=== PATIENT | male | born 1950 | race Caucasian/White ===

== ENCOUNTER 2022-11-30 12:38 | Outpatient (CLI) | payer OTHER, SELFPAY ==
--- NOTE | 2022-11-30 12:48 | USCV_ITS ---
Dyan Randell Age: 72 Gender: M : 1950 Exam Date: 11/30/2022 13:00 Ordering Phys: Inocencio Villanueva DO Technologist: CT Exam Location: [facility] – [place] Indication: screening aaa HISTORY: Diameter (cm) AP x Transverse x Length Velocity (cm/s) Waveform Prox Aorta: 1.81 x 1.90 x 131.70 Mid Aorta: 1.72 x 1.58 x 110.90 Distal Aorta: 1.52 x 1.58 x 141.40 Right Iliac Prox: 0.91 x 0.91 x 169.10 Left Iliac Prox: 0.97 x 1.02 x 160.80 Stent Prox Landing x x Aneurysmal Sac Max x x Lt Lat Sac Dim Rt Lat Sac Dim Stent Dist Landing x x Right Iliac Stent x x Left Iliac Stent x x Right Renal Art Left Renal Art FINDINGS: no aaa CONCLUSIONS No evidence of abdominal aortic or bilateral iliac aneurysm. 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 Ritesh Price MD (Electronically Signed) Final Date: 30 November 2022 13:18 S
== END 2022-11-30 12:39 | disposition home or self-care (01) ==
LOC: RAD 12:45
PROVIDERS: PCP Emergency Medicine Emergency Medical Services; Visit Provider Emergency Medicine Emergency Medical Services
DX: Z01.89 Encounter for other specified special examinations (principal)
CPT/HCPCS: 76706

== ENCOUNTER 2024-05-08 08:51 | Emergency (ER) | payer OTHER, MEDICARE, MEDICAID, SELFPAY ==
[2024-05-08] VITALS (20 sets, daily range): BP systolic 151–185; BP diastolic 65–85; PULSE 53–78; RESP 14–22; TEMP 36.8; O2SAT 90–99; BMI 29.5
--- NOTE | 2024-05-08 09:09 | ECG_ITS ---
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 Measurements Intervals [place] Rate: 61 P: 64 SC: 140 QRS: 56 QRSD: 100 T: 56 QT: 382 QTc: 386 Interpretive Statements SINUS RHYTHM No previous ECG available for comparison Electronically Signed On 05-09-2024 21:50:20 CDT by Ubaldo Contreras M.D. [id number]
--- NOTE | 2024-05-08 09:25 | W.ED.ARRPALP ---
HPI - Arrhythmia/Palpitations General: Chief Complaint: Arrhythmia/Palpitations Stated Complaint: [facility], high bp, heart palpitations Time Seen by Provider: 05/08/24 09:07 Source: patient Mode of arrival: ambulatory History of Present Illness: 73-year-old male who presents emergency room with elevated blood pressure and intermittent heart palpitations. He initially went to the [place] [facility] when he was directed here he has not had any chest pain denies any shortness of breath states he actually feels well right now. He typically takes 25 mg of metoprolol succinate twice daily he is taking that regularly recently and has not changed. He has a known history of hypertension. No known history of atrial fibrillation in the past MD complaint: rapid heart beat Review of Systems Const: Denies: fever(s) or chills Card: Denies: chest pain Resp: Denies: dyspnea GI: Denies: abdominal pain : Denies: dysuria, urinary frequency or urinary urgency Musc: Denies: neck pain or back pain Skin/Breast: Denies: rash PFSH ED PFSH: Social History Smoking and tobacco/nicotine status: never used tobacco/nicotine Second hand smoke exposure: No Alcohol intake: never Substance/Drug Use: never Physical Exam Const: GENERAL APPEARANCE: cooperative and comfortable ORIENTATION/CONSCIOUSNESS: Yes awake, Yes oriented to person, Yes oriented to place and Yes oriented to time HENMT: COMMON NORMALS: normocephalic, atraumatic and hearing grossly normal bilaterally HEAD & SCALP: normocephalic and atraumatic Resp: COMMON NORMALS: normal respiratory effort, No retractions, No use of accessory muscles and clear to auscultation bilaterally AUSCULTATION: clear to auscultation bilaterally Cardio: COMMON NORMALS: No murmurs present (Cardio) RATE: tachycardic RHYTHM: abnormal rhythm irregularly irregular GI: COMMON NORMALS: Soft to palpation and No hepatosplenomegaly present AUSCULTATION: Yes normoactive bowel sounds PALPATION: Yes Soft to palpation, No Tenderness to palpation present (GI), No Guarding due to palpation present (GI) and Yes No hepatosplenomegaly present Extremity: COMMON NORMALS: normal to inspection, capillary refill normal, no clubbing, cyanosis or edema, no calf tenderness and no pedal edema Neuro: SENSORIUM/ORIENTATION: Yes oriented to person, Yes oriented to place and Yes oriented to time Skin: COMMON NORMALS: no rashes or lesions noted GENERAL SKIN EXAM: no rashes or lesions noted Course Vital Signs: Vital signs: Vital Signs Temperature 98.3 F 05/08/24 08:52 Pulse Rate 60 05/08/24 11:45 Respiratory Rate 22 H 05/08/24 11:45 Blood Pressure 151/85 05/08/24 11:50 Pulse Oximetry 96 05/08/24 11:45 Oxygen Delivery Me thod Room Air 05/08/24 10:50 MDM - Arrhythmia/Palpitations Medical Decision Making No symptoms or arrhythmias during stay in the emergency room. He did remain bradycardic however his blood pressure is actually somewhat elevated. Will add amlodipine 2.5 mg daily discharge him home with his 72-hour Holter monitor follow-up with his primary care doctor. Recheck if he has further problems. Differential Diagnosis Likely palpitations Medical Records I reviewed the patient's medical records. Lab Data I reviewed the patient's lab results. 05/08/24 09:18 05/08/24 09:18 Radiology Impressions Chest X-Ray 05/08/24 10:21 IMPRESSION: No acute chest abnormality. Laboratory Results WBC 4.94 10^3/uL (3.29-11.43) 05/08/24 09:18 RBC 4.87 10^6/uL (3.85-5.65) 05/08/24 09:18 Hgb 14.60 g/dL (11.27-16.99) 05/08/24 09:18 Hct 45.2 % (37-53) 05/08/24 09:18 MCV 92.8 fl (82-101) 05/08/24 09:18 MCH 30.0 pg (27-33) 05/08/24 09:18 MCHC 32.3 g/dL (30-55) 05/08/24 09:18 RDW 13.3 % (12.1-15.1) 05/08/24 09:18 Plt Count 167 10^3/cmm (157-399) 05/08/24 09:18 MPV 11.4 fL (7.4-10.4) H 05/08/24 09:18 Neut % (Auto) 66.0 % 05/08/24 09:18 Lymph % (Auto) 23.9 % 05/08/24 09:18 [place] % (Auto) 7.9 % 05/08/24 09:18 Eos % (Auto) 1.4 % 05/08/24 09:18 Baso % (Auto) 0.6 % 05/08/24 09:18 Neut # (Auto) 3.26 10^3/uL (1.8-7.7) 05/08/24 09:18 Lymph # (Auto) 1.2 10^3/uL (0.8-4.8) 05/08/24 09:18 [place] # (Auto) 0.4 10^3/uL (0.2-0.9) 05/08/24 09:18 Eos # (Auto) 0.1 10^3/uL (0.0-0.8) 05/08/24 09:18 Baso # (Auto) 0.0 10^3/uL (0.0-0.1) 05/08/24 09:18 Nucleated RBC % (auto) 0 % 05/08/24 09:18 Nucleated RBCs # 0.0 /100WBC 05/08/24 09:18 Sodium 136 mmol/L (136-145) 05/08/24 09:18 Potassium 4.2 mmol/L (3.5-5.1) 05/08/24 09:18 Chloride 103 mmol/L (98-107) 05/08/24 09:18 Carbon Dioxide 20 mmol/L (22-29) L 05/08/24 09:18 Anion Gap 17.2 (5-19) 05/08/24 09:18 BUN 13 mg/dL (8-23) 05/08/24 09:18 Creatinine 0.8 mg/dL (0.7-1.2) 05/08/24 09:18 GFR Calculation Not Reportable 05/08/24 09:18 Glucose 114 mg/dL (65-115) 05/08/24 09:18 Calculated Osmolality 283 mOsm/kg (285-295) L 05/08/24 09:18 Calcium 8.9 mg/dL (8.5-10.5) 05/08/24 09:18 Total Bilirubin 0.5 mg/dL (0.15-1.2) 05/08/24 09:18 AST 27 U/L (0-40) 05/08/24 09:18 ALT 23 U/L (0-41) 05/08/24 09:18 Alkaline Phosphatase 142 U/L (40-130) H 05/08/24 09:18 Troponin T Baseline 9 ng/L (0-15) 05/08/24 09:18 Troponin T 120 Minute 9.59 ng/L (0-15) 05/08/24 10:48 Delta Troponin T 0.59 ABS# (0-10) 05/08/24 10:48 Total Protein 7.3 g/dL (6.6-8.7) 05/08/24 09:18 Albumin 4.2 g/dL (3.5-5.2) 05/08/24 09:18 Globulin 3.1 g/dL (1.3-4.6) 05/08/24 09:18 TSH 2.73 uIU/mL (0.27-4.20) 05/08/24 09:18 All radiology interpretation(s) finalized by discharge Discharge Plan Discharge Patient Disposition: Home Clinical Impression: HTN (hypertension), Palpitation Condition: Stable Prescriptions: New amlodipine 2.5 mg tablet 2.5 mg PO DAILY Qty: 30 0RF No Action cholecalciferol (vitamin D3) 25 mcg (1,000 unit) capsule 25 mcg PO .QOD tamsulosin 0.4 mg capsule 0.4 mg PO DAILY famotidine 20 mg Tablet 20 mg PO BID metoprolol tartrate 50 mg Tablet 25 mg PO BID Fish Oil 1,000 mg (120 mg-180 mg) Capsule 1 cap PO DAILY Discharge Orders: Discharge ED (Routine); Ordered 05/08/24 Ordered By: Bucky Dangelo Discharge Diet: Usual diet Discharge Activity: Resume usual activity Patient Instructions: Opioid Safety, Pain Management Activity Restrictions/Additional Instructions: Thank you for choosing [facility] for your healthcare needs today. It is very important that you follow up as instructed or that you return to the Emergency Department should you have concerns or if your condition changes or worsens in any way. You were seen today for complaints of elevated blood pressure and rapid heart rate. At times you had an irregular heart rate in the emergency room but your rate was controlled the entire visit. Recommend you continue taking metoprolol daily. Will add amlodipine 2.5 mg daily. In addition to this we will set you up for an outpatient 72-hour Holter monitor. Coding Level of Care Code ED Ground Support Equipment Mechanic for Rogelio Vargas
[2024-05-08 09:35] LABS: Basophils % 0.6 %; Eosinophils # 0.1 10^3/uL (0.0-0.8); Eosinophils % 1.4 %; Hematocrit 45.2 % (37-53); Lymphocytes # 1.2 10^3/uL (0.8-4.8); Lymphocytes % 23.9 %; Mean Corpuscular HGB Conc 32.3 g/dL (30-55); Mean Corpuscular Volume 92.8 fl (82-101); Mean Platelet Volume 11.4 fL (7.4-10.4); Monocytes # 0.4 10^3/uL (0.2-0.9); Monocytes % 7.9 %; Neutrophils # 3.26 10^3/uL (1.8-7.7); Nucleated Red Blood Cells % 0 %; Platelet Count 167 10^3/cmm (157-399); Red Blood Count 4.87 10^6/uL (3.85-5.65); Red Cell Distribution Width 13.3 % (12.1-15.1); White Blood Count 4.94 10^3/uL (3.29-11.43)
[2024-05-08 09:54] LABS: Slide Review Slide Review Perform
[2024-05-08 09:56] LABS: Troponin(5th) Baseline 9 ng/L (0-15)
[2024-05-08 10:03] LABS: Alanine Aminotransferase 23 U/L (0-41); Albumin Level 4.2 g/dL (3.5-5.2); Alkaline Phosphatase 142 U/L (40-130); Blood Urea Nitrogen 13 mg/dL (8-23); Calcium 8.9 mg/dL (8.5-10.5); Carbon Dioxide 20 mmol/L (22-29); Chloride 103 mmol/L (98-107); Creatinine Clr Calc Pharmacy 81.9074; Globulin 3.1 g/dL (1.3-4.6); Glucose 114 mg/dL (65-115); Osmolality Calculated 283 mOsm/kg (285-295); Sodium 136 mmol/L (136-145); Thyroid Stimulating Hormone 2.73 uIU/mL (0.27-4.20); Total Bilirubin 0.5 mg/dL (0.15-1.2); Total Protein 7.3 g/dL (6.6-8.7)
[2024-05-08 10:05] LABS: Anion Gap 17.2 (5-19); Aspartate Amino Transferase 27 U/L (0-40); Potassium 4.2 mmol/L (3.5-5.1)
--- NOTE | 2024-05-08 10:21 | XR_ITS ---
WS: [id number] XR chest 1V portable [id number] REASON FOR EXAM: dyspnea/cough FINDINGS: Mild tortuosity of the thoracic aorta. Heart size is at the upper limits of normal. Calcified granulomas disease in both hemithoraces. No acute/subacute pulmonary parenchymal or pleural abnormality is identified. No lung nodule, mass, or adenopathy. 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 Moderate degenerative spondylosis in the mid and lower thoracic spine. XR/XR chest 1V portable [id number] IMPRESSION: No acute chest abnormality.
--- NOTE | 2024-05-08 11:09 | ECG_ITS ---
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 Measurements Intervals [place] Rate: 58 P: 67 HI: 158 QRS: 58 QRSD: 100 T: 67 QT: 390 QTc: 385 Interpretive Statements SINUS BRADYCARDIA Compared to ECG 05/08/2024 08:54:25 Sinus rhythm no longer present Electronically Signed On 05-09-2024 22:05:49 CDT by Ubaldo Contreras M.D. [id number]
[2024-05-08 11:18] LABS: Troponin 5 2HR 9.59 ng/L (0-15); Troponin 5 2HR Delta 0.59 ABS# (0-10)
--- NOTE | 2024-05-08 15:28 | DCPLANNER ---
messaged heart/lung for er f/u holter moniter
== END 2024-05-08 11:50 | disposition home or self-care (01) ==
PROVIDERS: Emergency Provider Family Medicine
DX: R00.2 Palpitations (principal); I10 Essential (primary) hypertension
CPT/HCPCS: 36415; 71045; 80053; 84443; 84484; 85025; 93005; 99285

== ENCOUNTER → 2024-07-13 12:07 | Outpatient (BNVA) | payer OTHER, SELFPAY | PROVIDERS: PCP Family Medicine; Referring Provider Family Medicine; Visit Provider Internal Medicine Cardiovascular Disease | DX: R06.02 Shortness of breath (principal); I10 Essential (primary) hypertension; R00.2 Palpitations | CPT/HCPCS: 99204 ==

== ENCOUNTER 2024-08-16 08:32 | Outpatient (CLI) | payer OTHER, SELFPAY ==
--- NOTE | 2024-08-16 09:15 | USCV_ITS ---
Randell Zaidi Age: 73 Gender: M : 1950 Exam Date: 08/16/2024 09:07 Ordering Phys: Zoila Peralta MD ([email or web address]) Technologist: SAPNA [place]am Location[place] [facility] [place] Indication: CHEST PAIN BP: 130 / 74 HR: 55 Rhythm: Sinus Technical Quality: Adequate MEASUREMENTS (Male / Female) Normal Values 2D ECHO LV Diastolic Diameter PLAX 5.1 cm 4.2 - 5.9 / 3.9 - 5.3 cm IVS Diastolic Thickness 1.1 cm 0.6 - 1.0 / 0.6 - 0.9 cm IVS Systolic Thickness 2.2 cm LVPW Diastolic Thickness 1.5 cm 0.6 - 1.0 / 0.6 - 0.9 cm LVPW Systolic Thickness 1.9 cm LVOT Diameter 2.0 cm LV Ejection Fraction 2D Teich 69.5 % LV Ejection Fraction MOD 4C 57.9 % LV Ejection Fraction MOD 2C 57.7 % LV Ejection Fraction 2C AL 60.7 % LA Diameter 3.2 cm RA Systolic Volume 4C AL 27.7 ml RA Systolic Volume 4C MOD 26.8 ml LA Sys Volume AL 47.4 cm cubed LA Sys Volume Index AL 24.0 cm cubed/m squared Aorta at Sinotubular Diameter 2.8 cm M-MODE LA Ao Ratio MM 1.0 AV Cusp Separation MM 1.3 cm DOPPLER AV Peak Velocity 141.0 cm/s LVOT Peak Velocity 107.0 cm/s AV Area Cont Eq vti 2.4 cm squared AV Area Cont Eq pk 2.5 cm squared MV Peak Velocity 102.0 cm/s MV Area PHT 3.8 cm squared Mitral E to A Ratio 1.0 TR Peak Velocity 237.5 cm/s TR Peak Gradient 22.6 mmHg TR Mean Velocity 176.0 cm/s TR Mean Gradient 13.5 mmHg TR Velocity Time Integral 83.7 cm TV Peak E Velocity 58.0 cm/s Right Atrial Pressure 3.0 mmHg Pulmonary Artery Systolic Pressu 25.6 mmHg PV Peak Velocity 109.0 cm/s RV Ejection Time 0.4 s FINDINGS Left Ventricle Normal left ventricular size, systolic function and wall thickness, with no regional wall motion abnormalities. Left ventricular ejection fraction is estimated at 55 %. Grade I/IV diastolic dysfunction (abnormal relaxation filling pattern), normal to mildly elevated filling pressures. Right Ventricle The right ventricle is normal in size and function. Right Atrium The right atrium is normal in size. Left Atrium The left atrium is normal in size. Mitral Valve Structurally normal mitral valve without significant stenosis or prolapse. There is no mitral regurgitation. Aortic Valve Structurally normal aortic valve without significant sclerosis or stenosis. There is no aortic regurgitation. Tricuspid Valve Structurally normal tricuspid valve without significant stenosis or regurgitation. Pulmonary artery systolic pressure is normal. Pulmonic Valve Structurally normal pulmonic valve without significant stenosis. There is no pulmonic regurgitation. Pericardium Normal pericardium without effusion. Aorta Normal ascending aorta dimension. IVC The inferior vena cava appears normal. CONCLUSIONS Normal left ventricular size, systolic function and wall thickness, with no regional wall motion abnormalities. Left ventricular ejection fraction is estimated at 55 %. Grade I/IV diastolic dysfunction (abnormal relaxation filling pattern), normal to mildly elevated filling pressures. There is no pericardial effusion. Pulmonary artery systolic pressure is within normal limits. No significant valve abnormalities. Right atrial pressure is around 5 mm of mercury. Zoila Peralta MD (Electronically Signed) Final Date: 17 August 2024 11:52 S
== END 2024-08-16 08:33 | disposition home or self-care (01) ==
LOC: RAD 08:32
PROVIDERS: PCP Family Medicine; Visit Provider Internal Medicine Cardiovascular Disease
DX: R06.02 Shortness of breath (principal); R07.9 Chest pain, unspecified
CPT/HCPCS: 93306